=== PATIENT | male | born 1990 | race Caucasian/White ===

== ENCOUNTER 2020-01-29 13:19 | Outpatient (CLI) | payer OTHER, SELFPAY ==
[2020-01-30 08:35] LABS: COVID-19 RT-PCR UVMMC Result Positive (Negative)
== END 2020-01-29 13:39 ==
PROVIDERS: Visit Provider Nurse Practitioner Family
DX: Z11.59 Encounter for screening for other viral diseases (principal)
CPT/HCPCS: U0003

== ENCOUNTER 2021-02-10 07:48 | Outpatient (CLI) | payer SELFPAY ==
[2021-02-11 02:17] LABS: COVID-19 RT-PCR UVMMC Result Negative (Negative)
== END 2021-02-10 07:49 | disposition home or self-care (01) ==
PROVIDERS: Visit Provider Nurse Practitioner Family
DX: Z20.822 Contact with and (suspected) exposure to COVID-19 (principal)
CPT/HCPCS: U0003